=== PATIENT | male | born 1975 | race Caucasian/White ===

== ENCOUNTER 2021-09-04 23:06 | Emergency (ER) | payer MEDICAID ==
[~2021-09-04] VITALS: Ht 175.3 cm; Wt 88.0 kg
[~2021-09-04 23:06] MED LIST: ZOLOFT; [UNRECOGNIZED DRUG - OTHER]; [UNRECOGNIZED DRUG - REMARK]
[2021-09-04] MEDS ORDERED: ATOR40TA28 PO (23:15)
[2021-09-05] MEDS ORDERED: ACETAMINOPHEN 500 MG TABLET PO ONE
[2021-09-05] MEDS ORDERED: IBUPROFEN 600 MG TABLET PO ONE
[2021-09-05 02:30] LABS: COVID AG,FIA SOURCE NASOPHARYNGEAL
[2021-09-05 03:50] VITALS: BP 130/78
== END 2021-09-05 03:54 | disposition home or self-care (01) ==
LOC: EMS 23:06
DX: B34.9 Viral infection, unspecified (principal); E78.00 Pure hypercholesterolemia, unspecified; F12.90 Cannabis use, unspecified, uncomplicated; F17.210 Nicotine dependence, cigarettes, uncomplicated; Z20.822 Contact with and (suspected) exposure to COVID-19; Z79.899 Other long term (current) drug therapy
CPT/HCPCS: 99283